=== PATIENT | male | born 1965 | race Caucasian/White ===

== ENCOUNTER 2021-07-22 09:18 | Day surgery (SDC) | payer OTHER ==
[~2021-07-22] VITALS: Ht 171.4 cm; Wt 54.9 kg
[2021-07-22] MEDS ORDERED: LIDOCAINE 2% 100 MG/5 ML UJET TP ONE (11:51)
[2021-07-22] MEDS ORDERED: MIDAZOLAM 5 MG/5 ML VIAL ONE (11:51)
[2021-07-22] MEDS ORDERED: fentaNYL citrate 0.05 MG/ML VIAL ONE (11:51)
== END 2021-07-22 12:46 | disposition home or self-care (01) ==
LOC: MDS 09:18 → MMU 09:19 → MDS 12:46
PROVIDERS: ATTEND Internal Medicine Gastroenterology
DX: Z12.11 Encounter for screening for malignant neoplasm of colon (principal); Z79.899 Other long term (current) drug therapy; Z20.822 Contact with and (suspected) exposure to COVID-19
CPT/HCPCS: 45378; 87426; J3010; J2250